=== PATIENT | female | born 1950 | race Caucasian/White ===

== ENCOUNTER 2017-10-03 11:30 | Inpatient (IN) | payer MEDICARE, OTHER ==
[~2017-10-03] VITALS: Ht 162.6 cm; Wt 62.7 kg
[2017-10-03 11:54] LABS: BASOPHILS 0.1 % (0-2); EOSINOPHILS 0.5 % (0-7); HEMATOCRIT 40.8 % (36.0-48.0); HEMOGLOBIN 13.6 g/dL (12-16); IMMATURE GRANULOCYTES 0.3 % (0-5); LYMPHOCYTES 10.8 % (15-50); MCH 30.7 pg (26.0-34.0); MCHC 33.3 g/dL (31.0-37.0); MCV 92.1 fL (80.0-100.0); MEAN PLATELET VOLUME 9.3 fL (7.4-10.4); MONOCYTES 4.4 % (2-11); NEUTROPHILS 83.9 % (40-80); PLATELET COUNT 219 10x3/uL (130-400); RBC 4.43 10x6/uL (4.00-5.40); RDW 13.4 % (11.5-14.5); WBC 12.9 10x3/uL (4.8-10.8)
[2017-10-03 12:14] LABS: ALBUMIN 3.4 g/dL (3.4-5.0); ANION GAP 16.4 mmol/L (8-16); BILIRUBIN - TOTAL 0.2 mg/dL (0.2-1.3); CALCIUM 8.9 mg/dL (8.5-10.1); CARBON DIOXIDE 24.7 mmol/L (21.0-32.0); CREATININE - SERUM 0.9 mg/dL (0.6-1.3); POTASSIUM - SERUM 4.1 mmol/L (3.5-5.1); PROTEIN - SERUM 6.9 g/dL (6.4-8.2)
[2017-10-03 14:52] LABS: CREATINE KINASE 447 UL (21-215)
[2017-10-03 14:53] LABS: CKMB 2.9 U/L (0.0-3.6); TROPONIN-I 0.001 ng/mL (0.000-0.060)
--- NOTE | 2017-10-03 16:10 | NUR ---
RECEIVED TO ROOM 2226 FROM ER VIA . ORIENTED TO ROOM AND CALL LIGHT SYSTEM. CALL LIGHT IN REACH. WILL CONTINUE WITH PLAN OF CARE.
[2017-10-03] MEDS ORDERED: EFFEXOR XR150 MG PO (16:13)
[2017-10-03] MEDS ORDERED: WELLBUTRIN SR150 MG (16:16)
[2017-10-03] MEDS ORDERED: LEVOTHYROXINE50 MCG PO (16:19)
--- NOTE | 2017-10-03 18:04 | NUR ---
MEDS ADMINISTERED PER ORDER. DYSLEXIA TEACHER INITIATED. NO CHANGES IN INITIAL ASSESSMENT. CALL LIGHT IN REACH. WILL CONTINUE WITH PLAN OF CARE.
[2017-10-03 20:00] VITALS: BP 146/52
--- NOTE | 2017-10-03 20:04 | NUR ---
SPECIMEN CUP HANDED TO PATIENT. EXPLAINED HOW TO GET A CLEAN CATCH URINE. VERBALIZED UNDERSTANDING. INCENTIVE SPIROMETER GIVEN TO PATIENT AND EXPLAINED USE WITH RETURN DEMONSTRATION.
--- NOTE | 2017-10-03 20:05 | NUR ---
SIT UP IN BED AND WATCH TV.
[2017-10-03 20:48] VITALS: BP 143/87; Ht 162.6 cm; Wt 62.7 kg
[2017-10-03 21:25] LABS: APPEARANCE CLEAR (CLEAR); BILIRUBIN NEGATIVE (NEGATIVE); COLOR YELLOW (YELLOW); GLUCOSE 100 mg/dL (NEGATIVE); KETONE SMALL mg/dL (NEGATIVE); NITRITE NEGATIVE (NEGATIVE); PROTEIN NEGATIVE (NEGATIVE); SPECIFIC GRAVITY 1.025 (1.005-1.020); UROBILINOGEN NORMAL (NORMAL)
--- NOTE | 2017-10-03 22:55 | NUR ---
REST IN BED, BED LOW, CALL LIGHT IN REACH.
[2017-10-04] VITALS: BP 135/62
--- NOTE | 2017-10-04 00:05 | NUR ---
START IV ON LEFT HAND, 20G FOR PT'S CTA, ONE ATTEMPT,GOOD BLOOD RETURN. PT TOLERATED WELL.
--- NOTE | 2017-10-04 02:37 | NUR ---
CALLED RESULT ABOUT CTA, TO PATRICIA RODRIGUEZ.
--- NOTE | 2017-10-04 03:20 | NUR ---
PUT IN CONSULT FOR PHYSICIAN.
[2017-10-04 04:00] VITALS: BP 119/62
--- NOTE | 2017-10-04 04:00 | NUR ---
IN BED, CALL LIGHT IN REACH.
[2017-10-04 05:48] LABS: BASOPHILS 0.3 % (0-2); EOSINOPHILS 0.4 % (0-7); HEMATOCRIT 36.3 % (36.0-48.0); IMMATURE GRANULOCYTES 0.1 % (0-5); LYMPHOCYTES 18.2 % (15-50); MCH 30.7 pg (26.0-34.0); MCHC 33.1 g/dL (31.0-37.0); MCV 92.8 fL (80.0-100.0); MEAN PLATELET VOLUME 9.7 fL (7.4-10.4); MONOCYTES 8.6 % (2-11); NEUTROPHILS 72.4 % (40-80); PLATELET COUNT 218 10x3/uL (130-400); RBC 3.91 10x6/uL (4.00-5.40); RDW 13.7 % (11.5-14.5)
[2017-10-04 05:57] LABS: WBC 7.1 10x3/uL (4.8-10.8)
[2017-10-04 06:21] LABS: ALKALINE PHOSPHATASE 58 U/L (46-116); ALT (SGPT) 22 U/L (10-68); CALC OSMOLALITY 266 mosm/kg (275-300); CALCIUM 8.4 mg/dL (8.5-10.1); CARBON DIOXIDE 28.4 mmol/L (21.0-32.0); CHLORIDE - SERUM 98 mmol/L (98-107); CREATININE - SERUM 0.7 mg/dL (0.6-1.3); GLUCOSE 112 mg/dL (74-106); PROTEIN - SERUM 6.2 g/dL (6.4-8.2); SODIUM 133 mmol/L (136-145); UREA NITROGEN 12 mg/dL (7-18); eGFR NON AFRICAN AMERICAN 89 mL/min (90-120)
--- NOTE | 2017-10-04 07:25 | NUR ---
REPORT RECEIVED, ASSUMED CARE OF PT. RESTING WITH EYES SHUT, EASILY AROUSED. NO NEEDS VOICED AT THIS TIME. BED IN LOWEST POSITION, SIDE RAILS UP X 2, CALL LIGHT WITHIN REACH.
--- NOTE | 2017-10-04 07:45 | NUR ---
REFUSED INITIAL MORNING TX DUE TO NAUSEA
[2017-10-04 08:48] VITALS: BP 144/57
--- NOTE | 2017-10-04 10:34 | NUR ---
Patient Name: POPPY DONG Admission Status: ER Accout number: [id number] Admission Date: 10-03-2017 : 1950 Admission Diagnosis: Attending: RETA GANDHI Current LOS: 1 Anticipated DC Date: 10-08-2017 Planned Disposition: Home Primary Insurance: MEDICARE A & B Discharge Planning Comments: CM MET WITH PATIENT REGARDING D/C NEEDS AND PLANS. PATIENT STATED SHE LIVES WITH HER SPOUSE (CASTILLO) AND HE WILL DRIVE HER HOME AT DISCHARGE. PATIENT STATED THERE ARE 2 STEPS W/GRAB BARS TO ENTER HOME AND NO STAIRS INSIDE. PATIENT IS INDEPENDENT WITH HER CARE AND HAS A WALKER, ELEV. TOILET SEAT, AND CANE AT HOME. PATIENTS STATED HER PCP IS DR. FERGUSON AT [place] AND USES [facility] IN THE [facility] FOR HER PHARMACY. PATIENT REFUSED HOME HEALTH. CM WILL CONTINUE TO FOLLOW PATIENT WITH D/C NEEDS AND PLANS. PCP DR. MARTY DAHL AT [facility] [phone] [facility] [phone] Crew Team Member: Elena Velasco Is the patient Alert and Oriented? Yes 0 * How many steps to enter\exit or inside your home? 2 W/GRAB B 0 * PCP DR. FERGUSON IN [place] 0 * [email or web address] 0 * Preadmission Environment Home with Family 0 * ADLs Independent 0 * Equipment Cane Elevated [place] Seat Walker 0 * List name and contact numbers for known caregivers / representatives who currently or will assist patient after discharge: CASTILLO (SPOUSE) [phone] 0 * Community resources currently utilized None 0 * Additional services required to return to the preadmission environment? Yes 0 * Can the patient safely return to the preadmission environment? Yes 0 * Has this patient been hospitalized within the prior 30 days at any hospital? No 0 Grand Total: 0
[2017-10-04 12:33] VITALS: BP 133/53
--- NOTE | 2017-10-04 14:41 | NUR ---
NUTRITION MONITORING AND EVAL CHART REVIEWED. DIET CHANGED TO REG NO REPORTED CARDIAC HX. WILL CONTINUE TO MONITOR PT PROGRESS. RD FOLLOWING
--- NOTE | 2017-10-04 15:34 | NUR ---
CM REASSESSMENT NOTE: PATIENT IS DISCHARGING HOME TODAY/REFUSED HOME HEALTH. PATIENT STATED HER SPOUSE WILL DRIVE HER HOME. PATIENT HAD NO OTHER NEEDS FOR DISCHARGE.
--- NOTE | 2017-10-04 15:52 | NUR ---
CM REASSESSMENT NOTE: PATIENTS PULSE OX WENT TO 88% WHEN O2 WAS OFF FOR WALK TEST. DISCHARGE IS CANCELLED
[2017-10-04 15:55] VITALS: BP 109/45
--- NOTE | 2017-10-04 17:43 | NUR ---
OT NOTE: PT COMPLETED GROOMING WITH SET UP. PT COMPLETED BED MOB WITH MIN-CGA. THANK YOU, [facility]/Betsy
[2017-10-04 20:00] VITALS: BP 107/44
[2017-10-05] VITALS: BP 130/60
[2017-10-05 04:00] VITALS: BP 133/61
[2017-10-05 05:41] LABS: BASOPHILS 0.2 % (0-2); EOSINOPHILS 2.8 % (0-7); IMMATURE GRANULOCYTES 0.2 % (0-5); LYMPHOCYTES 30.4 % (15-50); MCH 30.6 pg (26.0-34.0); MCHC 32.4 g/dL (31.0-37.0); MCV 94.4 fL (80.0-100.0); MEAN PLATELET VOLUME 9.8 fL (7.4-10.4); MONOCYTES 10.3 % (2-11); NEUTROPHILS 56.1 % (40-80); RDW 13.5 % (11.5-14.5)
[2017-10-05 05:45] LABS: PLATELET COUNT 170 10x3/uL (130-400); WBC 5.1 10x3/uL (4.8-10.8)
[2017-10-05 06:11] LABS: ALBUMIN 2.7 g/dL (3.4-5.0); ALKALINE PHOSPHATASE 48 U/L (46-116); ALT (SGPT) 17 U/L (10-68); BILIRUBIN - TOTAL 0.27 mg/dL (0.2-1.3); CALC OSMOLALITY 277 mosm/kg (275-300); CALCIUM 8.3 mg/dL (8.5-10.1); CARBON DIOXIDE 29.8 mmol/L (21.0-32.0); CHLORIDE - SERUM 104 mmol/L (98-107); CREATININE - SERUM 0.7 mg/dL (0.6-1.3); GLUCOSE 110 mg/dL (74-106); POTASSIUM - SERUM 3.9 mmol/L (3.5-5.1); PROTEIN - SERUM 5.6 g/dL (6.4-8.2); SODIUM 139 mmol/L (136-145); UREA NITROGEN 10 mg/dL (7-18); eGFR NON AFRICAN AMERICAN 89 mL/min (90-120)
[2017-10-05 08:08] VITALS: BP 124/45
[2017-10-05 12:26] VITALS: BP 122/47
[2017-10-05] MEDS ORDERED: PERCOCET 10/3251 TA1 PO (15:43)
[2017-10-05] MEDS ORDERED: NICODERM C1 PATCH .1 TRANSDERM (15:43)
[2017-10-05] MEDS ORDERED: IPRAT-ALBUT 0.5-3 ML UPD (15:43)
[2017-10-05 15:58] VITALS: BP 133/50
--- NOTE | 2017-10-05 16:48 | NUR ---
CM REASSESSMENT NOTE: PATIENT IS DISCHARGING HOME TODAY/SPOUSE IS DRIVING. TERESA FORM SIGNED FOR [facility] AND REFERRAL SENT. [facility] IS BRINGING OXYGEN AND PORTABLE O2 TO PATIENT FOR DISCHARGE. SAT WAS 88%
--- NOTE | 2017-10-05 18:34 | NUR ---
R ARM AND L HAND IV D/C'D, CATHETER INTACT, BLEED CONTROL, BANDAGE APPLIED. DISCHARGE INSTRUCTIONS GIVEN ORDERED, PT VERBALIZED UNDERSTANDING AND SIGNED.
--- NOTE | 2017-10-05 18:40 | NUR ---
PT LEFT FLOOR WITH PERSONAL BELONGINGS VIA WHEELCHAIR TO HUSBANDS VEHICLE. NO QUESTIONS OR NEEDS AT THIS TIME.
--- NOTE | 2017-10-18 14:06 | CN ---
PATIENT NAME:POPPY YAN MEDICAL RECORD: [id number] : 54 LOCATION:[id number] ADMIT DATE: 10/03/17 ACCOUNT: [id number] CONSULTING PHYSICIAN: WEI COVINGTON MD REFERRING PHYSICIAN: RETA ROSS MD DATE OF CONSULTATION: 10/04/2017 CONSULT REQUESTING PHYSICIAN: Reta Ross MD REASON FOR CONSULTATION: Fracture of ribs, chest pain, pneumothorax. HISTORY OF PRESENT ILLNESS: Ms. Yan is a 67-year-old female who had blackout and fall in the bathroom with fall on the commode. She came in with severe pain of the right side of the chest. On evaluation in the ER, we found out she has fracture of rib from 4th to 7th rib. Now, she is feeling a little bit better and wants to go home. According to the patient, she had similar episode while she was in [place] and she had extensive workup for her syncope and no cause was found. REVIEW OF THE SYSTEMS: Mainly in the history of present illness. PAST MEDICAL HISTORY: 1. History of syncope in the past. 2. History of ethanol abuse. 3. There is no documented COPD and pulmonary hypertension. PAST SURGICAL HISTORY: Nonsignificant. ALLERGIES: She has no known drug allergies. MEDICATIONS: Modlar was reviewed. PERSONAL AND SOCIAL HISTORY: The patient is still current everyday smoker. She is nondrinker. FAMILY HISTORY: Noncontributory. PHYSICAL EXAMINATION: GENERAL: Now, the patient is lying comfortably. She is not in acute distress. VITAL SIGNS: Her pulse ox is 88% on room air. Blood pressure 144/57, pulse is 87, respirations 18, temperature 97.5, and SpO2 94% on 2 liters nasal cannula. HEENT: Conjunctivae pink. Sclerae nonicteric. NECK: Supple. No JVD. CHEST: Chest excursion is minimal. There are crackles at the right base. HEART: Rhythm regular. Normal sounds. No murmur. ABDOMEN: Abdomen is soft. Bowel sounds present. No hepatosplenomegaly. RECTAL: Deferred. EXTREMITIES: No cyanosis. No clubbing. No pedal edema. SKIN: Warm. Normal turgor. CENTRAL NERVOUS SYSTEM: The patient is awake and alert. There are no obvious cranial nerve abnormalities. The gait was not tested. CTA of the chest: There is no pulmonary embolism. There is fracture from 4th to 7th rib. There is subcutaneous emphysema. There is small basilar pneumothorax. There are bilateral lower lobe atelectasis, right greater than CONSULT REPORT [id number] POPPY YAN. OTHER LAB DATA: CBC; WBC is 12.9, hemoglobin is 13.6, hematocrit 40.8, and platelet count 219. Chemistry; sodium 133, potassium is 4, BUN is 12, creatinine is 0.7, and glucose is 112. IMPRESSION: 1. Syncopal episode. 2. Status post fall and fracture of ribs from 4th to 7th. 3. Acute hypoxic respiratory failure. 4. Bibasilar atelectasis. 5. Right pneumothorax. RECOMMENDATION: Continue the pain control with ibuprofen and oxycodone. I will check the chest radiograph in the morning. Continue supplemental oxygen. Dr. Ross, thank you for involving me in the care of Ms. Yan. TRANSINT:[id number] Voice Confirmation ID: [id number] DOCUMENT ID: [id number] WEI COVINGTON MD at 1406 CC: RETA ROSS MD [id number] DICTATION DATE: 10/04/17 1556 STRADDLE BUG DRIVER: 10/04/17 1645 DIS IN 10/05/17 [place] [id number] [place] [address]
== END 2017-10-05 18:41 | disposition home health service (06) | DRG 200 ==
LOC: D.ER 11:30 → D.MS 14:36
PROVIDERS: Emergency Medicine; ADMIT Family Medicine
DX: S27.0XXA Traumatic pneumothorax, initial encounter (principal); F17.203 Nicotine dependence unspecified, with withdrawal; J98.11 Atelectasis; S22.49XA Multiple fractures of ribs, unspecified side, initial encounter for closed fracture; J44.1 Chronic obstructive pulmonary disease with (acute) exacerbation; W19.XXXA Unspecified fall, initial encounter; F10.20 Alcohol dependence, uncomplicated; R55 Syncope and collapse; J43.9 Emphysema, unspecified

== ENCOUNTER → 2020-05-18 10:24 | Outpatient (CLI) | payer MEDICARE, OTHER ==
[2017-10-03 20:48] VITALS: BMI 23.7
[~2020-05-18 10:24] MED LIST: EFFEXOR XR150 MG PO; IPRAT-ALBUT 0.5-3 ML UPD; LEVOTHYROXINE50 MCG PO; NICODERM C1 PATCH .1 TRANSDERM; PERCOCET 10/3251 TA1 PO; WELLBUTRIN SR150 MG
== END | disposition home or self-care (01) ==
LOC: D.CT 05-14 10:00
PROVIDERS: ATTEND Nurse Practitioner Family
DX: I70.201 Unspecified atherosclerosis of native arteries of extremities, right leg (principal)